=== PATIENT | female | born 1980 | race Caucasian/White ===

== ENCOUNTER → 2020-09-11 14:24 | Outpatient (CLI) | payer OTHER, SELFPAY ==
--- NOTE | 2020-09-11 14:31 | RAD_ITS ---
HISTORY: Abdominal pain. Constipation. 2 views of the abdomen. No comparison imaging. Findings: Cholecystectomy clips. A right hemipelvic phlebolith. Bowel gas pattern is normal. Gentle leftward curvature to the spine. Lung bases are clear. No pneumatosis. No free air. RAD/Abd Inc Decub and/or Erect IMPRESSION: Normal. at 2151 Reported and signed by: Norm Luevano MD Electronically Signed: Norm Luevano MD at 21:49 EDT Tel , Service support ,
== END ==
PROVIDERS: PCP Family Medicine; Referring Provider Internal Medicine Gastroenterology; Visit Provider Internal Medicine Gastroenterology
DX: K59.00 Constipation, unspecified (principal); R10.9 Unspecified abdominal pain
CPT/HCPCS: 74019